=== PATIENT | female | born 2000 | race Hispanic/Latino ===

== ENCOUNTER 2019-12-07 22:21 | Emergency (ER) | payer OTHER ==
[~2019-12-07] VITALS: Ht 160 cm; Wt 84.4 kg
--- NOTE | 2019-12-08 00:32 | Diagnostic Imaging Report ---
EXAMINATION: CT of the abdomen and pelvis without contrast. TECHNIQUE: Spiral CT images of the abdomen and pelvis were performed from the lung bases to the lesser trochanters. No intravenous contrast was given per physician's request. Coronal and sagittal reformatted images were obtained. COMPARISON: None. CLINICAL HISTORY:Abdominal pain, possible rectal bleeding DISCUSSION: ABSENCE OF INTRAVENOUS CONTRAST DECREASES SENSITIVITY FOR DETECTION OF FOCAL LESIONS AND VASCULAR PATHOLOGY. ABDOMEN/PELVIS: LOWER THORAX: Unremarkable. HEPATOBILIARY: Diffusely decreased attenuation consistent with steatosis with focal fatty sparing surrounding the gallbladder fossa. No focal lesions. No intra or extrahepatic biliary ductal dilation. GALLBLADDER: No radio-opaque stones or sludge. No wall thickening. SPLEEN: No splenomegaly. PANCREAS: No focal masses or ductal dilatation. ADRENALS: No adrenal nodules. KIDNEYS/URETERS: No renal or ureteral calculi, hydronephrosis or obstruction. No contour abnormality or perinephric stranding. PELVIC ORGANS/BLADDER: Bladder and uterus are unremarkable. No adnexal masses. PERITONEUM/RETROPERITONEUM: No free air or fluid. LYMPH NODES: Mildly enlarged mesial rectal lymph nodes each measure 6 mm in short axis (series 2, images 85, 84 and 80). No intra-abdominal, retroperitoneal, pelvic or inguinal adenopathy. VESSELS: Unremarkable for noncontrast exam. GI TRACT: No bowel dilation or evidence of obstruction. Appendix is well identified and normal in caliber (coronal image 56). Minimal surrounding fat stranding in the distal aspect of the rectum with mild wall thickening (series 2, image 86). No focal mass or evidence of acute bleeding. Mild retained stool in the colon. No diverticulosis. BONES AND SOFT TISSUES: No aggressive lytic or suspicious focal sclerotic lesion. 7 mm nonaggressive appearing sclerotic lesion at the right superior ramus (series 2, image 93), likely represents a bone island. Soft tissues are grossly unremarkable. IMPRESSION: 1. Mild wall thickening in the distal aspect of the rectum with minimal surrounding fat stranding and mildly enlarged mesorectal nodes, which may reflect proctitis (infection or inflammatory), in the appropriate clinical setting. Recommend direct visualization with endoscopy for further evaluation. 2. No bowel dilation or evidence of obstruction. 3. Diffuse hepatic steatosis. Signed by: Dr. Viniico Benjamin M.D. on 12/08/2019 12:29 AM
--- NOTE | 2019-12-08 00:51 | Emergency Department Note ---
History of Present Illnes History of Present Illness Chief Complaint: Abdominal Complaints History of Present Illness This is a 18 year old female c cc rectal bleed. Onset (how long ago): day(s) (1) Location: abdomen Quality: dull Radiation: Denies non-radiation, Denies back, Denies neck, Denies extremity, Denies abdomen, Denies periumbilical, Denies flank, Denies proximal, Denies distal, Denies other Severity: moderate Onset quality: gradual Duration (how long): day(s) (1) Timing of current episode: constant Progression: waxing and waning Chronicity: new Context: Denies recent illness, Denies recent surgery, Denies recent immobilization, Denies recent travel, Denies trauma/injury, Denies new me dications, Denies hx of DVT/PE, Denies non-compliance w/ medications, Denies other Relieving factors: none Exacerbating factors: none Associated symptoms: Reports denies other symptoms Treatments prior to arrival: none Past Medical/Family History Physician Review I have reviewed the patient's past medical and family history. Any updates have been documented here. Past Medical History Past Medical History: None Past Surgical History: None Social History Smoking Cessation: Never Smoker Review of Systems Review of Systems Constitutional: Reports no symptoms EENTM: Reports no symptoms Cardiovascular: Reports no symptoms Respiratory: Reports no symptoms Gastrointestinal: Reports as per HPI Genitourinary: Reports no symptoms Musculoskeletal: Reports no symptoms Integumentary: Reports no symptoms Neurological: Reports no symptoms Psychological: Reports no symptoms Endocrine: Reports no symptoms Hematological/Lymphatic: Reports no symptoms Physical Exam Related Data Vital signs reviewed: Yes Physical Exam CONSTITUTIONAL Constitutional: Present well-developed, Present well-nourished HENT HENT: Present normocephalic, Present atraumatic, Present oropharynx clear/moist, Present nose normal HENT L/R: Present left ext ear normal, Present right ext ear normal EYES Eyes: Reports PERRL, Reports conjunctivae normal NECK Neck: Present ROM normal PULMONARY Pulmonary: Present effort normal, Present breath sounds normal CARDIOVASCULAR Cardiovascular: Present regular rhythm, Present heart sounds normal, Present capillary refill normal, Present normal rate GASTROINTESTINAL Abdominal: Present soft, Present nontender, Present bowel sounds normal GENITOURINARY Genitourinary: Present exam deferred SKIN Skin: Present warm, Present dry MUSCULOSKELETAL Musculoskeletal: Present ROM normal NEUROLOGICAL Neurological: Present alert, Present oriented x 3, Present no gross motor or sensory deficits PSYCHOLOGICAL Psychological: Present mood/affect normal, Present judgement normal Results Laboratory Lab results reviewed: Yes Imaging Imaging results reviewed: Yes Assessment & Plan Medical Decision Making MDM hemorrhoid polyp Reassessment Reassessment time: 00:50 Reassessment better Assessment & Plan Final Impression: (1) Abdominal pain (2) Rectal bleed Depart Disposition: HOME, SELF-CARE HIRA MONTES MD Dec 08, 2019 00:51
[2019-12-08 02:37] VITALS: BP 116/70
== END 2019-12-08 01:12 | disposition home or self-care (01) ==
LOC: FSED 22:21 → EDBD 22:21 → FSED 12-08 01:12
DX: K62.5 Hemorrhage of anus and rectum (principal); R10.9 Unspecified abdominal pain
CPT/HCPCS: 74176

== ENCOUNTER 2021-02-06 17:06 | Emergency (ER) | payer OTHER ==
[~2021-02-06] VITALS: Ht 157.5 cm; Wt 93.2 kg
[2021-02-06] MEDS ORDERED: KETOROLAC TROMETHAMINE 30 MG/ML VIAL IM STA (18:11)
[2021-02-06] MEDS ORDERED: CYCLOBENZAPRINE HCL 10 MG TAB PO PRN (18:15)
[2021-02-06] MEDS ORDERED: IBUPROFEN600 MG PO (18:46)
[2021-02-06] MEDS ORDERED: CYCLOBENZAPRINE10 MG PO (18:46)
== END 2021-02-06 20:32 | disposition home or self-care (01) ==
LOC: FSED 17:42
DX: M54.2 Cervicalgia (principal); M79.641 Pain in right hand; M54.5 Low back pain; M79.18 Myalgia, other site; V43.52XA Car driver injured in collision with other type car in traffic accident, initial encounter; Y92.488 Other paved roadways as the place of occurrence of the external cause
CPT/HCPCS: 73130; 96372; 99283; J1885

== ENCOUNTER 2022-04-11 22:10 | Emergency (ER) | payer OTHER ==
[~2022-04-11] VITALS: Ht 160 cm; Wt 93.9 kg
[~2022-04-11 22:10] MED LIST: CYCLOBENZAPRINE10 MG PO; IBUPROFEN600 MG PO
[2022-04-11] MEDS ORDERED: KETOROLAC TROMETHAMINE 30 MG/ML VIAL IV STA (22:49)
[2022-04-11] MEDS ORDERED: SODIUM CHLORIDE 0.9% 1000ML 1,000 ML IV STA (22:49)
[2022-04-11] MEDS ORDERED: ONDANSETRON HCL 4 MG ORAL DISINTEGRATING TAB ONE (22:54)
[2022-04-11] MEDS ORDERED: PROMETHAZINE 25MG/ NS 50ML (IV) IV ONE (23:00)
[2022-04-11] MEDS ORDERED: KETOROLAC TROMETHAMINE 30 MG/ML VIAL ONE (23:30)
[2022-04-11] MEDS ORDERED: PROMETHAZINE HCL (IM) 25 MG/ML VIAL IM ONE (23:30)
[2022-04-11] MEDS ORDERED: SODIUM CHLORIDE 0.9% 1000ML 1,000 ML ONE (23:30)
[2022-04-11] MEDS ORDERED: IOPAMIDOL 370 MG/ML 100 ML INFUS..BTL INJ ONE (23:37)
[2022-04-12] MEDS ORDERED: DICYCLOMINE HCL20 MG PO (00:38)
[2022-04-12] MEDS ORDERED: ONDANSETRON ODT4 MG PO (00:38)
[2022-04-12 00:42] VITALS: BP 118/66
== END 2022-04-12 00:45 | disposition home or self-care (01) ==
LOC: FSED 22:13
DX: R11.2 Nausea with vomiting, unspecified (principal); E11.65 Type 2 diabetes mellitus with hyperglycemia; R10.84 Generalized abdominal pain; F32.A Depression, unspecified; K76.0 Fatty (change of) liver, not elsewhere classified; F17.210 Nicotine dependence, cigarettes, uncomplicated
CPT/HCPCS: 74177; 80053; 81003; 81025; 85025; 87400; 96374; 99284; J1885; J2550; J7030; Q0162; Q9967